=== PATIENT | male | born 2000 | race African-American/Black ===

== ENCOUNTER 2019-11-30 10:53 | Emergency (ER) | payer MEDICAID ==
[~2019-11-30] VITALS: Ht 190.5 cm; Wt 82.0 kg
[2019-11-30 14:26] VITALS: BP 125/79
== END 2019-11-30 15:06 | disposition left against medical advice (07) ==
LOC: ER 10:53
DX: R50.9 Fever, unspecified (principal); Z53.21 Procedure and treatment not carried out due to patient leaving prior to being seen by health care provider

== ENCOUNTER 2022-11-15 15:09 | Emergency (ER) | payer MEDICAID ==
[~2022-11-15] VITALS: Ht 190.5 cm; Wt 82.0 kg
[2022-11-15 15:23] VITALS: BP 112/85
== END 2022-11-15 19:59 | disposition left against medical advice (07) ==
LOC: ER 15:09
DX: Z53.21 Procedure and treatment not carried out due to patient leaving prior to being seen by health care provider (principal)